=== PATIENT | female | born 1990 | race Native Hawaiian/Other Pacific Islander ===

== ENCOUNTER 2016-11-27 15:19 | Emergency (ER) | payer OTHER ==
[~2016-11-27] VITALS: Ht 170.2 cm; Wt 90.7 kg
[2016-11-27 15:33] VITALS: TEMP 98.1
[2016-11-27 16:52] VITALS: BP 138/82
== END 2016-11-27 16:53 | disposition home or self-care (01) ==
LOC: ED 15:19
DX: N61.1 Abscess of the breast and nipple (principal)
CPT/HCPCS: 99281; J1885

== ENCOUNTER 2020-03-01 09:35 | Emergency (ER) | payer OTHER ==
[~2020-03-01] VITALS: Ht 170.2 cm; Wt 90.7 kg
[2020-03-01 09:46] VITALS: TEMP 98.5
[2020-03-01 11:56] VITALS: BP 120/80
== END 2020-03-01 11:57 | disposition home or self-care (01) ==
LOC: ED 09:35
DX: N75.0 Cyst of Bartholin's gland (principal)
CPT/HCPCS: 96372; 99283; J0696; J1885

== ENCOUNTER 2020-08-15 18:15 | Emergency (ER) | payer OTHER ==
[~2020-08-15] VITALS: Ht 170.2 cm; Wt 96.6 kg
[2020-08-15 18:55] VITALS: TEMP 98.6
[2020-08-15 19:39] LABS: PLATELET COUNT 293 K/uL (152-353)
[2020-08-15 21:35] VITALS: BP 130/85
== END 2020-08-15 21:35 | disposition home or self-care (01) ==
LOC: ED 18:15
PROVIDERS: Hospitalist
DX: L03.116 Cellulitis of left lower limb (principal)
CPT/HCPCS: 36415; 80053; 85027; 87040; 96365; 96375; 99284; J1885; J2930; J3370

== ENCOUNTER 2022-03-20 18:11 | Emergency (ER) | payer OTHER ==
[~2022-03-20] VITALS: Ht 170.2 cm; Wt 96.6 kg
[2022-03-20 19:11] VITALS: BP 128/79; TEMP 98.2
== END 2022-03-20 19:11 | disposition home or self-care (01) ==
LOC: ED 18:11
PROC: 0H9FXZZ Drainage of Right Hand Skin, External Approach (ICD-10-PCS; principal; 2022-03-20)
DX: L03.011 Cellulitis of right finger (principal); L02.511 Cutaneous abscess of right hand
CPT/HCPCS: 87070; 87205; 99283; J2001